=== PATIENT | male | born 1960 | race Caucasian/White ===

== ENCOUNTER 2018-08-29 21:18 | Emergency (ER) | payer OTHER ==
[2018-08-29] MEDS ORDERED: Sodium Chloride 0.9% 10 ML Syringe FLUSH PRN (21:20)
[2018-08-29] MEDS ORDERED: Sodium Chloride 0.9% 1,000 ML IV ONE (21:20)
[2018-08-29] MEDS ORDERED: EPINEPHrine 1 MG/ML SDV IM ONE (21:21)
[2018-08-29] MEDS ORDERED: Famotidine 20 MG/2 ML SDV IVPUSH ONE (21:22)
[2018-08-29] MEDS ORDERED: diphenhydrAMINE 50 MG/ML SDV IVPUSH ONE (21:22)
[2018-08-29] MEDS ORDERED: methylPREDNISolone Sodium Succinate 125 MG/2 ML SDV IVPUSH ONE (21:22)
--- NOTE | 2018-08-29 21:27 | EDM.PDOC ---
<Cristiane Murray Frieda - Last Filed: 08/29/18 22:19> ED HPI GENERAL MEDICAL PROBLEM - General Chief Complaint: Allergic Reaction Stated Complaint: BEE STING Time Seen by Provider: 08/29/18 21:20 Source of Information: Reports: Patient History Limitations: Reports: No Limitations - History of Present Illness INITIAL COMMENTS - FREE TEXT/NARRATIVE: Axel is a 58 year old male, presents to the ED today via private care with c/ o shortness of breath, throat tightness, facial/lip swelling after being stung by a bee about an hour prior to arrival, hx of bee allergy. Patient did have his epi pen and Benadryl prior to arrival here. Patient has never required hospitalization or intubation from his bee stings, denies any other injuries. Onset: Today, Sudden - Related Data Allergies Allergy/AdvReac Type Severity Reaction Status Date / Time bee venom protein (honey bee) Allergy Anaphylactic Verified 08/29/18 21:27 Shock ED ROS ALLERGIC REACTION - Review of Systems Review Of Systems: ROS reveals no pertinent complaints other than HPI. ED EXAM GENERAL NO PERIP PULSE - Physical Exam Exam: See Below Exam Limited By: No Limitations General Appearance: Alert, No Apparent Distress Eye Exam: Bilateral Eye: EOMI Throat/Mouth: Normal Oropharynx, No Airway Compromise, Other (lip and facial swelling) Head: Atraumatic Neck: Normal Inspection, Supple, Non-Tender Respiratory/Chest: No Respiratory Distress, Lungs Clear, Normal Breath Sounds Cardiovascular: Normal Peripheral Pulses, Regular Rate, Rhythm, No Murmur GI/Abdominal: Normal Bowel Sounds, Soft, Non-Tender Extremities: Normal Inspection Neurological: Alert, Oriented Skin Exam: Warm, Dry, Intact, Other (bee sting to right shoulder, no stinger noted) Lymphatic: No Adenopathy Course - Vital Signs Text/Narrative:: Axel is a 58 year old male, presents to the ED after being stung by a bee, hx of allergy to bee stings, see HPI and focused exam. Patient c/o throat feeling tight, sob on arrival, no intr-oral swelling noted, no tongue swelling, lip and facial swelling, patient given IM epi, IV established and patient given IV fluids, Benadryl, Solu-Medrol, Pepcid. 2220-Patient sleeping, easily arousable, states he is feeling better, lip swelling has resolved, lip swelling improved but still mildly swollen. Will sign out patient to Officer for ongoing monitoring and disposition to ensure no rebound symptoms. Last Recorded V/S: Last Vital Signs Temp 95.9 F 08/29/18 21:25 Pulse 69 08/29/18 22:06 Resp 18 08/29/18 21:25 BP 161/76 H 08/29/18 22:06 Pulse Ox 99 08/29/18 22:06 - Orders/Labs/Meds Orders: Active Orders 24 hr Category Date Time Status Peripheral IV Care [RC] . DIRECTED Care 08/29/18 21:20 Active Sodium Chloride 0.9% [Saline Flush] Med 08/29/18 21:20 Active 10 ml FLUSH ASDIRECTED PRN Peripheral IV Insertion Adult [OM.PC] Routine Oth 08/29/18 21:20 Ordered Medication Orders Sodium Chloride (Saline Flush) 10 ml FLUSH ASDIRECTED PRN PRN Reason: Keep Vein Open Last Admin: 08/29/18 21:33 Dose: 10 ml Meds: Medications Generic Name Dose Route Start Last Admin Trade Name Freq PRN Reason Stop Dose Admin Sodium Chloride 10 ml 08/29/18 21:20 08/29/18 21:33 Saline Flush FLUSH 10 ml ASDIRECTED PRN Administration Keep Vein Open Discontinued Medications Generic Name Dose Route Start Last Admin Trade Name Freq PRN Reason Stop Dose Admin Diphenhydramine HCl 25 mg 08/29/18 21:22 08/29/18 21:32 Benadryl IVPUSH 08/29/18 21:23 25 mg ONETIME ONE Administration Epinephrine HCl 0.3 mg 08/29/18 21:21 08/29/18 21:21 Adrenalin IM 08/29/18 21:22 0.3 mg ONETIME ONE Administration Famotidine 20 mg 08/29/18 21:22 08/29/18 21:33 Pepcid IVPUSH 08/29/18 21:23 20 mg ONETIME ONE Administration Sodium Chloride 1,000 mls @ 999 mls/hr 08/29/18 21:20 08/29/18 21:33 Normal Saline IV 08/29/18 22:20 999 mls/hr .BOLUS ONE Administration Methylprednisolone Sodium Succinate 125 mg 08/29/18 21:22 08/29/18 21:32 Solu-Medrol IVPUSH 08/29/18 21:23 125 mg ONETIME ONE Administration Departure - Departure Disposition: Home, Self-Care 01 Condition: Good Clinical Impression: Bee sting allergy - Discharge Information Instructions: Allergies, Adult, [id number], Anaphylactic Reaction, Adult, Bee , Wasp, or Hornet Sting, Adult Referrals: PCP,None [Primary Care Provider] - Forms: ED Department Discharge Additional Instructions: Can continue Benadryl as needed, 25 mg every 4 hours. You can take Claritin or Zyrtec as needed daily. I have written out a new Rx for your epi pens, make sure you get these filled and have them available. <OfficerShaheen - Last Filed: 08/29/18 23:23> Departure - Departure Time of Disposition: 23:23 - Assessment/Plan Plan: Assessment Acuity = acute Site and laterality = allergic reaction Etiology = secondary to bee sting Manifestations = rash and facial edema now resolved Location of injury = Home Lab values = none Plan Prescription written for injectable epinephrine follow-up primary care as needed This note was dictated using [employer] voice recognition software please call with any questions on syntax or grammar.
== END 2018-08-29 23:28 | disposition home or self-care (01) ==
LOC: JP.ED 21:18
DX: T63.441A Toxic effect of venom of bees, accidental (unintentional), initial encounter (principal); R21 Rash and other nonspecific skin eruption; R22.0 Localized swelling, mass and lump, head; R06.02 Shortness of breath; Z91.030 Bee allergy status
CPT/HCPCS: 96361; 96372; 96374; 96375; 99282; J0171; J1200; J2930; J3490; J7030